=== PATIENT | male | born 1950 | race Caucasian/White ===

== ENCOUNTER 2023-06-24 21:49 | Emergency (ER) | payer MEDICARE, SELFPAY ==
[2023-06-24 22:06] VITALS: BP 167/80; PULSE 68; RESP 16; TEMP 36.6; O2SAT 99; BMI 35.0
[2023-06-24 22:10] LABS: Appearance Urine Clear (Clear); Bilirubin Urine Negative (Negative); Blood Urine 1+ (Negative); Color Urine Yellow (Yellow); Glucose Urine 1+ (Negative); Ketones Urine 1+ (Negative); Leukocyte Esterase Urine Negative (Negative); Nitrite Urine Negative (Negative); Protein Urine 2+ (Negative); Specific Gravity Urine >= 1.030 (1.000-1.030); Urobilinogen Urine 0.2 (0.2-1.0)
[2023-06-24 22:22] LABS: WBC Urine 0-2 (0-5)
--- NOTE | 2023-06-24 22:29 | ED_ITS ---
HPI - General Adult General Chief complaint: Flank Pain Stated complaint: right side flank pain Time Seen by Provider: 06/24/23 22:29 History of Present Illness HPI narrative: Patient here with right flank/back pain starting at 3 pm rating 6/10. Having chills/ sweating episodes with it, can't get comfortable, sharp pain, and slightly nauseated. Has had kidney stones in the past but used lemon juice in his water which helped. Has not used lemon juice recently. No abdominal surgeries. 72-year-old man presenting to the emergency department with concern of sudden onset of intense pain in the right flank. Sharp pain. Colicky. Has been accompanied with some nausea. Has felt chilled with the pain he thinks. Has not measured a fever. Is somewhat better now. Has felt some discomfort then in the right side as well. Has had trouble just getting comfortable. Seemed to be better if he extended back a little bit more. He does recall a history of kidney stones on further inquiry but was thinking that this must be coming from his back. This onset was while he was at rest. No known injury. Last kidney stone was probably 8 years ago after a lumbar surgery. He has not noted any dysuria nor hematuria. No radiation down his legs. No loss of bowel bladder control. After this experience with kidney stones he did drink lemon juice in water which she feels like was beneficial. I believe it was a genetically unrelated family member who had recommended the lemon juice; Mr. Blanco has fallen away from doing that. Does not have any repeated or specific food intolerances. Does have some GERD sometimes and he says usually when he has he something he was not supposed to; something that was good he laughs. Does not have known gallbladder disease. As we discussed differential he remembers that this pain is similar to his kidney stones in the past. Related Data Home Medications Medication Instructions Recorded Confirmed atorvastatin 40 mg tablet 40 mg PO 12/13/22 02/12/23 lisinopril 5 mg tablet 5 mg PO 12/13/22 02/12/23 metformin 500 mg tablet,extended tab PO 12/13/22 02/12/23 release 24 hr metoprolol tartrate 25 mg tablet 25 mg PO 12/13/22 02/12/23 nitroglycerin 0.4 mg sublingual 0.4 mg buccal 12/13/22 02/12/23 tablet aspirin 81 mg tablet,delayed 81 mg PO DAILY 06/24/23 06/24/23 release (Adult Aspirin Regimen) Previous Rx's Medication Instructions Recorded tamsulosin 0.4 mg capsule 0.4 mg PO DAILY #15 caps 06/24/23 Allergies Allergy/AdvReac Type Severity Reaction Status Date / Time No Known Drug Allergies Allergy Verified 02/12/23 12:07 Review of Systems Status of ROS: Reports: 6 or more systems reviewed and unremarkable except as noted in History and below PFSH PFSH Social History Smoking Status: Never smoker Non-prescribed substance use: denies use Exam Narrative: Exam Narrative: Very pleasant. Positive affect. Skin is warm and dry. He is well-perfused peripherally without lower extremity edema. Is breathing easily. Lungs are clear. There is a little discomfort to percussion of the right flank. Abdomen is soft. Initially I thought there was some tenderness in the right upper quadrant but with repeated exam less convinced. Clearly not Thomas's positive. Abdomen generally is overweight. Some diastasis recti. There are no masses otherwise. No peritoneal signs. Pain does not appear to be exacerbated particularly by rotational movement of the trunk or sitting up or lying down. Const: Vital Signs, click to edit/add: Vital Signs - 24 hr 06/24/23 22:06 Temperature 97.9 F Pulse Rate [Right Pulse Oximeter] 68 Respiratory Rate 16 Blood Pressure [Ri ght Upper Arm] 167/80 H Pulse Oximetry 99 Oxygen Delivery Me thod Room Air Documenting provider has reviewed patient's vital signs: yes Course Vital Signs Vital signs: Initial Vital Signs Temperature 97.9 F 06/24/23 22:06 Temperature Source Temporal Artery Scan 06/24/23 22:06 Pulse Rate 68 06/24/23 22:06 Pulse Rhythm Regular 06/24/23 22:06 Respiratory Rate 16 06/24/23 22:06 Blood Pressure 167/80 H 06/24/23 22:06 Blood Pressure Mean 109 H 06/24/23 22:06 Blood Pressure Position Sitting 06/24/23 22:06 Pulse Oximetry 99 06/24/23 22:06 Oxygen Delivery Method Room Air 06/24/23 22:06 Vital Signs Temperature 97.9 F 06/24/23 22:06 Pulse Rate 68 06/24/23 22:06 Respiratory Rate 16 06/24/23 22:06 Blood Pressure 167/80 H 06/24/23 22:06 Pulse Oximetry 99 06/24/23 22:06 Oxygen Delivery Method Room Air 06/24/23 22:06 Temperature 97.9 F 06/24/23 22:06 Pulse Rate 68 06/24/23 22:06 Respiratory Rate 16 06/24/23 22:06 Blood Pressure 167/80 H 06/24/23 22:06 Pulse Oximetry 99 06/24/23 22:06 Oxygen Delivery Method Room Air 06/24/23 22:06 Medical Decision Making MDM Narrative Medical decision making narrative: Differential includes lumbar or low thoracic radiculopathy, gallbladder disease, urinary tract infection, vascular disruption. I think kidney stone and ureteral colic is most likely diagnosis. He looks fairly comfortable at this time. Urinalysis was resulted already by the time I was seeing Mr. Blanco. High specific gravity 1+ blood 1+ ketones 2+ protein 2-5 red cells. No indication of infection otherwise. Given his comfort at this time and clinical picture of ureteral stone and colic, I did discuss watchful waiting versus full evaluation with imaging. We discussed risks of waiting. He would like to defer further workup at this time. Was given then a dose of tamsulosin in the emergency department. See patient discharge plan Lab Data Lab results reviewed: Yes I reviewed the patient's lab results Labs: Lab Results 06/24/23 Range/Units 22:04 Urine Color Yellow (Yellow) Urine Appearance Clear (Clear) Urine pH 6.0 (5.0-8.5) Ur Specific Maybell >= 1.030 (1.000-1.030) Urine Protein 2+ A (Negative) Urine Glucose (UA) 1+ A (Negative) Urine Ketones 1+ A (Negative) Urine Blood 1+ A (Negative) Urine Nitrite Negative (Negative) Urine Bilirubin Negative (Negative) Urine Urobilinogen 0.2 (0.2-1.0) Ur Leukocyte Esterase Negative (Negative) Urine RBC 2-5 A (0-2) Urine WBC 0-2 (0-5) Ur Squamous Epith Cells None (None-Few) Urine Bacteria None (None) Discharge Plan Discharge Clinical Impression: Acute flank pain, Hematuria, Ureteral colic Patient Disposition: Home w/ Parent or Adult Condition: Stable Additional Instructions: Yes. It is important to focus on hydration. You might consider straining your urine over the next week or so. Often people do not catch any stones; either missed or perhaps dissolved once they get to the bladder. Be seen for uncontrolled pain, intractable vomiting, fever, pain lasting more than 4 days. Can take the Flomax (tamsulosin) until you are convinced you do not have any more pain or what we are assuming is a stone has passed. For now and maybe with a little bit of food can take 600 mg of ibuprofen up to every 6 hours. Would not do this longer than 5-7 days. If you are needing the Percocet, might want a combine that with senna once or twice a day to limit constipation. Percocet and Zofran from [employer]. Prescriptions: New tamsulosin 0.4 mg capsule 0.4 mg PO DAILY Qty: 15 0RF No Action metformin 500 mg tablet extended release 24 hr PO atorvastatin 40 mg tablet 40 mg PO metoprolol tartrate 25 mg tablet 25 mg PO lisinopril 5 mg tablet 5 mg PO Patient Comments: TAKE 1 TABLET BY MOUTH EVERY DAY nitroglycerin 0.4 mg tablet, sublingual 0.4 mg buccal Patient Comments: PLACE 1 TABLET (0.4 MG) UNDER THE TONGUE EVERY 5 MINUTES IF NEEDED FOR CHEST PAIN. aspirin [Adult Aspirin Regimen] 81 mg tablet,delayed release (DR/EC) 81 mg PO DAILY Follow Up/Referrals: Provider,Not a Local [Referring] - Stand Alone Forms: Simtrol[employer] Info Instructions
[2023-06-24] MEDS: TAMSULOSIN HCL 0.4 MG CAPSULE PO (23:03)
--- OUTSIDE RECORDS SUMMARY | 2023-06-24 23:09 | XMS_ITS | Continuity of Care Document ---
Author Name Unknown Organization [facility] Address [address] [place] [address] Phone Care Team Providers Care Compliance Review Officer Name Role Phone Neptali Davis MD Unavailable Unavailable Allergies, Adverse Reactions, Alerts Substance Reaction Status Criticality No Known Allergies Active No Inform ation Medications Medication Instructions Dosage Effective Dates (start - stop) Status Comments LISINOPRIL (unknown strength) Not Available - Active METOPROLOL SUCCINATE (unknown strength) Not Available - Active SIMVASTATIN (unknown strength) Not Available - Active MULTIVITAMINS (unknown strength) Not Available - Active ASPIR 81 (unknown strength) Not Available - Active hydromorphone 2 mg tablet take 1-2 Tablet by Oral route every 6 - 8 hours prn - No Longer Active hydromorphone 2 mg tablet Take one to two tabs q 6 hours PRN discomfort - No Longer Active On behalf of Dr. Neptali Davis Procedures Procedure Date Office/Outpatient Visit,Est, Low 2017 X-Ray Exam Lwr Spine, Min 4 Views Office/Outpatient Visit,Est, Mod 2016 X-Ray Exam Lower Spine 2-3 Views 2016 Office/Outpatient Visit,Est, Mod 2015 X-Ray Exam Lower Spine 2-3 Views 2015 Postop Followup Visit X-Ray Exam Lower Spine 2-3 Views 2014 Postop Followup Visit X-Ray Exam Lower Spine 2-3 Views 2014 Lumbar Spine Fusion, Posterolateral Lumbar Spine Fusion W/Bone Graft 2014 Removal Of Spine Lamina (Kohli Type) Bilateral Low Back Disk Surgery/Decompre ss Insert Spine Fixation, Posterior 2014 Apply Spinal Prosthetic Device 15 Aspiration, Bone Marrow Autograft, Spine Surgery, Local 015 Allograft, Spine Surg, Morselized Pa Assist Lumbar Spine Fusion, Posterola teral Removal Of Spine Lamina (Kohli Type) Bilateral Pa Low Back Disk Surgery/Decom press Pa Assist Insert Spine Fixation, Posteri or Office/Outpatient Visit,[facility] [place] Advance Directives Directive Yes / No Effective Date File Name No Information Encounters Encounter Description Practice Location Reason(s) For Visit Diagnoses Date Provider Providers Copied on Encounter Office/Outpa tient Visit,Est, Low [facility], [address], [place], [place], [id number] , [phone] [facility] Spinal stenosis, lumbar region NOS 2 8 Mehbod Amir. [facility], [address] [place] [address], [place], [id number] , . [phone] Referring Provider: Wellington Leiva [employer] [address] [id number] [place], [address]. tel:[phone] Office/Outpa tient Visit,Est, Mod [facility], [address], [place], [place], [id number] , tel:[phone] [facility] Spinal stenosis, lumbar region 7 Mehbod Amir. [facility], [address] [place] [address], [place], [place], [id number] , . tel:[phone] Referring Provider: Wellington Leiva [employer] [address] [place], [address]. tel:[phone] Office/Outpa tient Visit,Est, Mod [facility], [address], [facility] [place], [id number] , [place] tel: [phone] [facility] OverweightSpina l stenosis, lumbar region Fe 6 Mehbod Amir. [facility], [address] [place] [address], [facility] [place], [id number] , [place]. tel:[phone] Referring Provider: Wellington Leiva [employer] [address] [place], [address]. tel:[phone] [facility], [address], [facility] [place], [id number] , [place] tel: [phone] [facility] Acquired spondylolisthes is Cheryl Helms. [address] [place] [address], [facility] [place], [id number] , [place]. tel: [phone] Referring Provider: Wellington Leiva [employer] [facility] [address] [place], [address]. tel:[phone] [facility], [address], [facility] [place], [id number] , [place] tel: [phone] [facility] Lumbago 5 Mehbod Amir. [facility], [address] [place] [address], [place], [place], [id number] , [place]. tel: [phone] Referring Provider: Wellington Leiva [employer] [address] [place], [address]. tel:[phone] [facility], [address], [facility] [place], [id number] , [place] tel: [phone] [facility] No Information 5 Mehbod Amir. [facility], [address] [place] [address], [facility] [place], [id number] , [place]. tel: [phone] [facility], [address], [facility] [place], [id number] , [place] tel: [phone] [facility] No Information 5 Kamini Adames er. [facility], [address], [address], [place], [place], [id number] , . [phone] [facility], [address], [place], [place], [id number] , tel:[phone] [facility] No Information 3 5 Mehbod Amir. [facility], [address], [place], [place], [id number] , [place]. [phone] Referring Provider: Wellington Leiva [employer] [address] [facility] [place], [address]. tel:[phone] Office/Outpa tient Visit,[facility], [address], [place], [place], [id number] , [phone] [facility] Vicky Lumbar DDD [phone] 5 Mehbod Amir. [facility], [address], [place], [place], [address] , [place]. [phone] Referring Provider: Wellington Leiva [employer], [address]. tel:[phone] Family History Family Member Type Diagnosis Age At Onset Problem (finding) Payers Payer name Insurance type Covered republican ID Piedad bowensmariah(s) [facility] [id number] [facility] [id number] Social History Type Description Quantity Date Captured Comments Alcohol Use Details Unknown Caffeine Use Details Unknown Tobacco Use Status Smoking Status No Information Sex Male Vital Signs Date / Time: Height Weight BMI Pulse Rate Blood Pressure Temperature Respiratory Rate Body Surface Area Head Circumference Head Circ. Percentile Wt./Aaron. Percentile BMI percentile Pulse Ox Inhaled Ox 9:24 AM 68.00 in 107.501 kg (237.00 lbs) 36.0 4 kg/m eter (2) 59 /min 102/50 mm[Hg] Chief Complaint And Reason For Visit No Information Reason For Referral Reason For Referral No Information Plan Of Treatment Date Type Action Status Future Order: Radiology Order AP Lateral Lumbar (APLatLumb), Ordered on: Ordered Future Order: Radiology Order AP Lateral Lumbar (APLatLumb), Ordered on: Ordered History Of Present Illness Encounter Date Complaint History Of Prese nt Illness No Information Functional Status Date Functional Assessmen t No Information Instructions Date Instruction Additional Infor matkeara Weight Management Education Rela lisa to Overweight Weight management: I nstructed to return to General Practitioner timeframe: 1 Month. Related to Overweight Weight Management Education Rela lisa to Overweight Weight management: I nstructed to return to General Practitioner timeframe: 1 Month. Related to Overweight Assessments Type Assessment Date assessment Spinal stenosis, lumbar region N OS Patient Care Teams Name Effective Dates (start - stop) Status Members No Information
== END 2023-06-24 23:20 | disposition home or self-care (01) ==
PROVIDERS: Emergency Provider Family Medicine; PCP Family Medicine
DX: R10.9 Unspecified abdominal pain (principal); N23 Unspecified renal colic; R31.9 Hematuria, unspecified
CPT/HCPCS: 81001; 99283; 99284; A9270